=== PATIENT | male | born 1945 | race Caucasian/White ===

== ENCOUNTER → 2017-08-21 | Outpatient (CLI) | payer MEDICARE, BC ==
[~2017-08-21] MED LIST: ALBU2.5V36 INH; ASPI-879 PO; ATOR-1 PO; ATOR20TA65 PO; BUDE10.2 INH; CARI-1 PO; CHOL10005 PO; CHOL200022 PO; CYAN100017 PO; CYCL10TA29 PO; DEXL60CA6 PO; DILT180C2 PO; GINK120C PO; GLUC100026 PO; GUAI400T18 PO; HYDR-319 PO; IBUP200C71 PO; LIDO4SOL3 TP; LIDO5T TP; LIDO700A29 TD; META800T18 PO; METO25TA23 PO; NAPR220C12 PO; NITR0.4T3 SL; OMEG-11 PO; SAW450CA3 PO; TICA90TA PO; VITA-200 PO
== END ==
LOC: LAB 11:50
PROVIDERS: ATTEND Otolaryngology
DX: J30.9 Allergic rhinitis, unspecified (principal)
CPT/HCPCS: 36415; 86003

== ENCOUNTER → 2017-08-30 | Outpatient (CLI) | payer MEDICARE, BC | LOC: AUD 13:30 | PROVIDERS: ATTEND Otolaryngology | DX: H91.93 Unspecified hearing loss, bilateral (principal); J31.0 Chronic rhinitis | CPT/HCPCS: 92557; 92570 ==

== ENCOUNTER → 2018-01-07 | Outpatient (CLI) | payer MEDICARE, BC ==
[~2018-01-07] MED LIST changes: +ASPI81TA94 PO
== END ==
LOC: AUD 14:00
PROVIDERS: ATTEND Family Medicine
DX: Z46.1 Encounter for fitting and adjustment of hearing aid (principal)
CPT/HCPCS: V5259

== ENCOUNTER 2018-04-04 13:54 | Outpatient (RCR) | payer MEDICARE, BC ==
[~2018-04-04] VITALS: Ht 177.8 cm; Wt 68.0 kg
[~2018-04-04 13:54] MED LIST changes: -CHOL200022 PO; +CHOL200085 PO; +IBUP-136 PO; -IBUP200C71 PO
--- NOTE | 2018-04-04 16:46 | Medical Nutrition Therapy ---
Nutrition Anthropometrics Height (Inches): 70 Weight (Pounds): 150 (with heavy shoes) Daryl Nutrition Score: Daryl Nutrition Risk Score: Dietary Referral Nutrition Risk Factors: Nutrition Risk Comment: Physical Findings Physical Appearance: BMI 21 Skin Appearance Skin Appearance: Edema Edema Location Modifier: Edema Location: Type of Edema: Degree of Edema: Gastrointestinal Symptoms GI Symtoms: Tube Present: Bowel Sounds: Recent Bowel Pattern: Stool Characteristics: Nutrition/Food History Breakfast: 6:00- apple, dates, 8:00 1sl toast, olive oil or jam Lunch: 12:00 protein bar+ protein shake Dinner: skinless poultry or salmon,veg, beans, coffee Snacks: 3:00 1c cereal, hs carrots, apple , unsalted cracker, 1 oz nuts Nutritional Education Nutrition Education Topic: Cardiac (with wt loss and anemia) Learning Readiness: Eager Teaching Methods: Discussion, Handout Response to Teaching: Verbalize understanding Teaching Recipient: Patient, Significant Other Nutrition Counseling: Pt stated had SD 1 year ago. Has since made changes in diet and has lost ~ 25# that was not desired. Typical day intake indicated pt has been following Mediterranean diet. Pt exercises (walking) daily. On revieweing intake, suspect with exercise level, pt is not consuming adequate kcal. Reviewed Mediterranean diet. Encouraged pt to increase healthy fat by adding 1/2 avocado daily, addition 1-2 oz nuts, olives, and oils. Additional kcal can be from additional protein shake, smoothies, pasta/starchy foods ( with encouragement of whole grains). Noted downward trend of HDL. Recommend increasing beans, possibly adding soluable fiber supplement (guar fiber), apples, nuts. Discussed modifying recipes to be heart healthy to add back some favorite foods ( pies, pasties, hamburgers). D/t anemia, recommended adding back some lean beef to diet. Will f/u in 2 weeks with phone call and schedual f/u appt if pt has further questions and concerns. Nutrition Monitoring & Eval RD Patient Assessment Time: 60 minutes Nutritional Comment: Provided 70 minutes MNT for CAD, pt with undesired wt loss, pernicous anemia Copies To Copies to: RAFAELA POST BETH Apr 04, 2018 16:46
[2018-04-18] MEDS ORDERED: GINK60TA6 PO (08:46)
[2018-04-18] MEDS ORDERED: ASCO-182 PO (08:49)
[2018-04-18] MEDS ORDERED: IRON18TA2 PO (08:50)
[2018-04-18] MEDS ORDERED: CARI-1 PO (08:51)
== END 2018-05-09 ==
LOC: DIET 13:54
PROVIDERS: ATTEND Family Medicine
DX: K21.9 Gastro-esophageal reflux disease without esophagitis (principal); I10 Essential (primary) hypertension; I25.2 Old myocardial infarction; M54.5 Low back pain; R06.02 Shortness of breath; I25.10 Atherosclerotic heart disease of native coronary artery without angina pectoris; Z68.21 Body mass index [BMI] 21.0-21.9, adult
CPT/HCPCS: 97802

== ENCOUNTER 2018-04-26 02:39 | Day surgery (SDC) | payer MEDICARE, BC ==
[~2018-04-26] VITALS: Ht 177.8 cm; Wt 65.3 kg
[~2018-04-26 02:39] MED LIST changes: +ASCO-182 PO; +GINK60TA6 PO; +IRON18TA2 PO
[2018-04-26] MEDS ORDERED: OPHTHALMIC PROCEDURE 1 OD PRN (12:00)
[2018-04-26] MEDS ORDERED: OPHTHALMIC PROCEDURE 2 OD PRN (12:00)
[2018-04-26 12:07] VITALS: BP 126/77
[2018-04-26] MEDS: OPHTHALMIC PROCEDURE 2 OD PRN ×2 (12:15→12:27)
[2018-04-26] MEDS ORDERED: LIDOCAINE/SOD BICARB 8.4% SYR ID ONE (12:30)
[2018-04-26] MEDS ORDERED: NORMOSOL R SOLN(*) 1000 ML BAG 1,000 ML IV PRN (12:30)
[2018-04-26] MEDS ORDERED: MIDAZOLAM 2 MG/2 ML VIAL ONE (12:59)
[2018-04-26] MEDS ORDERED: acetaZOLAMIDE 500 MG CAPCR PO ONE (13:30)
[2018-04-26 13:53] VITALS: BP 141/98
--- NOTE | 2018-04-26 17:55 | FOSTER RIGHT EYE CATARACT ---
EVENT DATE: April 26, 2018 SURGEON: Fernando Bridges MD ANESTHESIA: Topical PREOPERATIVE DIAGNOSIS Cataract, right eye. POSTOPERATIVE DIAGNOSIS Cataract, right eye. PROCEDURE Phacoemulsification of cataractous lens with implantation of an intraocular lens, right eye. DESCRIPTION OF PROCEDURE The risks, benefits, and alternatives were carefully discussed with the patient, and preoperative consent was obtained. The patient was brought to the operating room after receiving topical anesthetic. The patient was prepped and draped using sterile technique in the usual manner. A stab incision was made, and the chamber was inflated with preservative-free lidocaine. DuoVisc was injected to inflate the chamber. A 2.2 mm blade was used to enter the anterior chamber. Utrata forceps were used to tear a circular capsulorrhexis. BSS was used to hydrodissect the nucleus. Phaco tip was introduced, and the nucleus was chopped into four quadrants. Each quadrant was removed. The I/A tip was used to remove the cortex. The bag was inflated with ProVisc. The intraocular lens was injected into the capsular bag. The I/A tip was used to remove the ProVisc. The wound was found to be watertight. Vigamox, Nevanac, and Maxitrol ointment were placed in the patient's eye. The patient's eye was patched, and the patient was taken to the recovery room in stable condition. The patient was examined in the recovery room and found to be stable prior to release from the hospital. CAMPOS
== END 2018-04-26 14:11 | disposition home or self-care (01) ==
LOC: OR 02:39
PROVIDERS: ATTEND Ophthalmology
DX: H25.11 Age-related nuclear cataract, right eye (principal)
CPT/HCPCS: 66984; A9270; V2632; J2250

== ENCOUNTER → 2018-06-05 | Outpatient (CLI) | payer MEDICARE, BC ==
--- NOTE | 2018-06-05 13:32 | RADIOLOGY IMAGING REPORT ---
FACILITY: [facility] PATIENT NAME: Tamir Ventura : 1945 MR: [id number] V: [id number] EXAM DATE: ORDERING PHYSICIAN: RAFAELA POST TECHNOLOGIST: Location: [facility] - [place] Patient: Tamir Ventura : 1945 Visit/Account:[id number] Date of Sevice: 06/05/2018 Exam type: CHEST PA AND LAT History: Shortness of breath previous smoker Comparison: April 03, 2017. Findings: Again noted is hyperinflation of the lung becerra. There is no evidence of focal infiltrates pleural effusions or pulmonary edema. The cardiac silhouette appears normal. The trachea is in midline. IMPRESSION: 1. Hyperinflation of the lung becerra although no evidence of acute pulmonary consolidation Report Dictated By: Nabila Macario MD at 06/05/2018 1:27 PM Report E-Signed By: Nabila Macario MD at 06/05/2018 1:28 PM WSN:[id number]
== END ==
LOC: RAD 11:28
PROVIDERS: ATTEND Family Medicine
DX: R91.8 Other nonspecific abnormal finding of lung field (principal); R06.02 Shortness of breath
CPT/HCPCS: 71046

== ENCOUNTER 2018-10-18 03:36 | Day surgery (SDC) | payer MEDICARE, BC ==
[~2018-10-18] VITALS: Ht 175.3 cm; Wt 67.6 kg
[~2018-10-18 03:36] MED LIST changes: +CHOL200022 PO; -CHOL200085 PO
[2018-10-18 15:29] VITALS: BP 129/85
[2018-10-18] MEDS ORDERED: OPHTHALMIC PROCEDURE 2 OS PRN ×2 (15:30)
[2018-10-18] MEDS ORDERED: OPHTHALMIC PROCEDURE 1 OS PRN (15:30)
[2018-10-18] MEDS ORDERED: LIDOCAINE/SOD BICARB 8.4% SYR ID ONE (15:30)
[2018-10-18] MEDS ORDERED: MIDAZOLAM 2 MG/2 ML VIAL IVP PRN (15:30)
[2018-10-18] MEDS ORDERED: NORMOSOL R SOLN(*) 1000 ML BAG 1,000 ML IV PRN (15:30)
[2018-10-18] MEDS ORDERED: acetaZOLAMIDE 500 MG CAPCR PO ONE (15:30)
[2018-10-18 16:26] VITALS: BP 122/79
--- NOTE | 2018-10-18 17:50 | FOSTER LEFT EYE CATARACT ---
EVENT DATE: October 18, 2018 SURGEON: Fernando Bridges MD ANESTHESIOLOGIST: Davonte Edmondson MD ANESTHESIA: MAC PREOPERATIVE DIAGNOSIS Cataract, left eye. POSTOPERATIVE DIAGNOSIS Cataract, left eye. PROCEDURE Phacoemulsification of cataractous lens with implantation of an intraocular lens, left eye. DESCRIPTION OF PROCEDURE The risks, benefits, and alternatives were carefully discussed with the patient, and preoperative consent was obtained. The patient was brought to the operating room after receiving topical anesthetic. The patient was prepped and draped using sterile technique in the usual manner. A stab incision was made, and the chamber was inflated with preservative-free lidocaine. DuoVisc was injected to inflate the chamber. A 2.2 mm blade was used to enter the anterior chamber. Utrata forceps were used to tear a circular capsulorrhexis. BSS was used to hydrodissect the nucleus. Phaco tip was introduced, and the nucleus was chopped into four quadrants. Each quadrant was removed. The I/A tip was used to remove the cortex. The bag was inflated with ProVisc. The intraocular lens was injected into the capsular bag. The I/A tip was used to remove the ProVisc. The wound was found to be watertight. Vigamox, Nevanac, and Maxitrol ointment were placed in the patient's eye. The patient's eye was patched, and the patient was taken to the recovery room in stable condition. The patient was examined in the recovery room and found to be stable prior to release from the hospital. CAMPOS
== END 2018-10-18 17:10 | disposition home or self-care (01) ==
LOC: OR 03:36
PROVIDERS: ATTEND Ophthalmology
DX: H25.12 Age-related nuclear cataract, left eye (principal)
CPT/HCPCS: 66984; A9270; V2632